=== PATIENT | female | born 1995 | race Caucasian/White ===

== ENCOUNTER 2021-07-22 14:49 | Emergency (ER) | payer OTHER ==
[2021-07-22 15:02] VITALS: BP 113/72; PULSE 68; TEMP 98.1; BMI 33.3
[2021-07-22] MEDS ORDERED: LIDOCAINE 5% TOPICAL PATCH TP ONE (15:56)
[2021-07-22] MEDS ORDERED: KETOROLAC TROMETHAMINE 30 MG/1 ML VIAL IM ONE (15:56)
[2021-07-22] MEDS ORDERED: LIDOCAINE 5% TOPICAL PATCH ONE (16:00)
[2021-07-22] MEDS ORDERED: KETOROLAC TROMETHAMINE 60 MG/2 ML VIAL ONE (16:00)
[2021-07-22] MEDS ORDERED: LIDOCAINE PATCH REMOVAL MC ONE (22:00)
== END 2021-07-22 16:07 | disposition home or self-care (01) ==
LOC: JERFT 14:49
PROC: 3E0233Z Introduction of Anti-inflammatory into Muscle, Percutaneous Approach (ICD-10-PCS; principal; 2021-07-22)
DX: M54.42 Lumbago with sciatica, left side (principal)
CPT/HCPCS: 99284-25